=== PATIENT | male | born 1950 | race Caucasian/White ===

== ENCOUNTER → 2016-06-29 | Outpatient (CLI) | payer MEDICARE, OTHER ==
--- NOTE | 2016-06-30 02:44 | CT ---
Procedure: CT CHEST WITHOUT IV CONTRAST Exam Date: 06/29/2016 Ordering Provider: Jb Basilio Clinical Indication: I71.2 aortic aneurysm Comparison: 11/25/2015 TECHNIQUE: 5 mm images were taken through the chest without intravenous contrast material. Coronal and sagittal reformatted images were generated. This exam was performed according to our departmental dose optimization program which includes use of automated exposure control, adjustment of the mA and/or kV according to patient size and/or use of iterative reconstruction technique. FINDINGS: Lines/Tubes/Devices: None Lungs and large airways: Central airways are patent. No focal lung consolidation. Mild emphysematous change. Pleura: No pleural effusion. No pneumothorax. Mediastinum and salvador: No lymphadenopathy by size criteria. Heart and great vessels: Stable 4.6 cm ascending aortic aneurysm. Heart is not enlarged. No pericardial effusion. Aortic and coronary artery calcifications. Chest wall, lower neck, axillae: No axillary lymphadenopathy. Unremarkable thyroid. Upper abdomen: No acute abnormalities in the visualized upper abdomen. Bones: Nonacute IMPRESSION: 1.Stable 4.6 cm ascending aortic aneurysm. Electronically signed by: Benson Pena MD 06/30/2016 2:43 AM CDT
== END | disposition home or self-care (01) ==
LOC: CT 08:39
PROVIDERS: ATTEND Internal Medicine Cardiovascular Disease
DX: I71.2 Thoracic aortic aneurysm, without rupture (principal)

== ENCOUNTER → 2018-06-13 | Outpatient (CLI) | payer MEDICARE, OTHER | LOC: LAB.O 08:19 | PROVIDERS: ATTEND Nurse Practitioner Family | DX: I10 Essential (primary) hypertension (principal); Z12.5 Encounter for screening for malignant neoplasm of prostate | CPT/HCPCS: 36415; 80053; 80061; 84443; 85025; G0103 ==

== ENCOUNTER → 2019-09-08 | Outpatient (CLI) | payer MEDICARE, OTHER ==
--- NOTE | 2019-09-08 12:49 | US ---
EXAM DESCRIPTION: Aorta: Ultrasound. CLINICAL HISTORY: ABDOMINAL AORTA ANEURYSM COMPARISON: CT scan of the chest without contrast June 2016. TECHNIQUE: Transcutaneous scanning: Two-dimensional and Doppler modes. FINDINGS: Abdominal aorta diameter - Proximal: 2.7 x 2.1 cm. Mid: 2.6 x 2.1 cm. Distal: 2.1 x 2.0 cm. Common Iliac diameter - Right: 14 mm. Left: 14 mm. Other: Atherosclerotic changes. IMPRESSION: 2.7 cm proximal abdominal aortic aneurysm. Borderline aneurysms bilateral proximal common iliac arteries. [facility] Best Practice guidelines: 2.7 cm abdominal aortic aneurysm suspected. Stable since prior chest CT scan June 2016. Recommend follow-up every 5 years. Reference: J Am Cydney Radiol 2013;10:789-794. Electronically signed by: Jamari Arredondo MD 09/08/2019 12:47 PM CDT
== END ==
LOC: US 09:00
PROVIDERS: ATTEND Internal Medicine Cardiovascular Disease
DX: I71.4 Abdominal aortic aneurysm, without rupture (principal); I77.89 Other specified disorders of arteries and arterioles

== ENCOUNTER 2019-11-23 16:46 | Emergency (ER) | payer MEDICARE, OTHER ==
[2019-11-23] MEDS ORDERED: SODIUM CHLORIDE 0.9% (FLUSH) 10 ML SYG IV PRN (16:51)
--- NOTE | 2019-11-23 16:52 | ED.PDOC ---
History of Present Illness - General Time Seen by Provider: 11/23/19 16:51 Source: patient - History of Present Illness Initial Comments: 69-year-old male with past medical history of hypertension, GERD, COPD who presents with chief complaint of chest pain. Onset suddenly about 20 minutes prior to arrival while sitting at home at rest, located to center of chest wall, felt like a sharp severe muscular chest pain with slow radiation into the epigastric region over the next 5-10 minutes, he took 3 baby aspirin and the pain resolved after approx 5-10 mins altogether. He reports he last ate some peanut butter fold-ups about 1 hour prior to the event. He reported some mild dyspnea with the episode due to the pain. He does report chronic symptoms of mild dyspnea and intermittent cough from his COPD and smoking. He does report history of GERD and admits to drinking about 3 shots of rum per day every day. He also smokes daily. Denies any history of VT or coronary stents. Denies fevers, chills, n/v/d, leg swelling, urinary sx's. His PCP is Ronald Griffiths and his casting sorter is Dr. Ly. Allergies/Adverse Reactions: Allergies NO KNOWN ALLERGY Allergy (Unverified 11/23/19 17:13) Home Medications: Ambulatory Orders Aspirin [Aspirin Adult Low Dose] 81 mg PO DAILY 12/22/15 Carvedilol [Coreg] 3.125 mg PO BEDTIME 12/22/15 Cetirizine HCl [ZyrTEC] 10 mg PO DAILY 12/22/15 Esomeprazole Magnesium [Nexium] 40 mg PO DAILY 12/22/15 Lisinopril 10 mg PO DAILY 12/22/15 Round Top-3 Fatty Acids [Round Top 3] 1 cap PO DAILY 12/22/15 Tiotropium [place] Monohydrate [Spiriva Handihaler] 1 puff IN DAILY 12/22/15 Varenicline Tartrate [Chantix] 1 mg PO DAILY 12/22/15 Review of Systems - Review of Systems Review of Systems: 11/23/19 17:31 as per HPI All other Systems: Reviewed and Negative Past Medical History (General) - Patient Medical History Hx Congestive Heart Failure: No Hx Diabetes: No Hx MRSA: No Family Medical History - Family History Mother Family History: Unknown Physical Exam - Physical Exam General Appearance: Alert, Comfortable, No apparent distress Eye Exam: bilateral normal Ears, Nose, Throat: hearing grossly normal, normal ENT inspection, normal pharynx Neck: non-tender, full range of motion, supple, normal inspection Respiratory: lungs clear, normal breath sounds, no respiratory distress, no accessory muscle use Cardiovascular/Chest: normal peripheral pulses, regular rate, rhythm, no edema, no gallop, no JVD, no murmur, other - Mild ttp to chest wall, "feels sore" Peripheral Pulses: radial,right: 2+, radial,left: 2+ Gastrointestinal/Abdominal: normal bowel sounds, non tender, soft, no organomegaly Back Exam: normal inspection, no CVA tenderness, no vertebral tenderness Extremity: normal range of motion, non-tender, normal inspection, no pedal edema, no calf tenderness, normal capillary refill Neurologic: counseling program leader II-XII nml as tested, no motor/sensory deficits, alert, normal mood/affect, oriented x 3 Skin Exam: normal color, warm/dry Progress - Progress Progress: 11/23/19 17:33 Chest pain -Seems atypical in nature. Consider esophageal spasm, GERD, musculoskeletal most likely. Consider also ACS, unstable angina, pneumonia, CHF, gastritis, gastric ulcer, PE, acute pancreatitis, other -Patient stable upon ED arrival. Now reports pain as 0/10 severity, feeling back to his usual self -Obtain cardiac work-up, blood work -As patient has already taken 3 baby aspirin, will give 1 more for a total of 324 mg p.o. today as precautionary measure 11/23/19 20:24 -Trop 0.02 x2 in the ED and repeat EKG unchanged. CP has not returned. Work-up otherwise in the ED is unremarkable. -Pt strongly advised to be admitted for further CP observation given his age and risk factors but he declines and would rather go home. -Dc home in good condition, return warnings discussed. F/u closely with PCP for outpatient work-up. Advised to quit smoking & drinking. Richard Joseph MD Billing #[id number] 11/23/19 17:00 EKG STAT 11/23/19 18:45 EKG STAT Laboratory Results - last 24 hr 11/23/19 11/23/19 11/23/19 17:00 17:00 17:00 WBC 7.5 RBC 5.34 Hgb 17.0 Hct 48.2 MCV 90.2 MCH 31.7 H MCHC 35.2 RDW 13.7 Plt Count 169 MPV 7.9 Absolute Neuts (auto) 4.60 Absolute Lymphs (auto) 1.90 Absolute Monos (auto) 0.60 Absolute Eos (auto) 0.30 Absolute Basos (auto) 0.10 Neutrophils % 62.2 Lymphocytes % 25.8 Monocytes % 7.4 Eosinophils % 3.5 Basophils % 1.1 D-Dimer, Quantitative < 131.0 L Sodium 136 Potassium 3.8 Chloride 99 L Carbon Dioxide 27 Anion Gap 13.8 BUN 13 Creatinine 1.15 BUN/Creatinine Ratio 11.3 Random Glucose 132 H Serum Osmolality 273.9 L Calcium 8.8 Total Bilirubin 0.5 AST 27 ALT 24 Alkaline Phosphatase 78 Troponin I B-Natriuretic Peptide 25.0 Serum Total Protein 7.0 Albumin 4.0 Globulin 3.0 Albumin/Globulin Ratio 1.3 Lipase 11/23/19 11/23/19 11/23/19 17:00 17:00 18:42 WBC RBC Hgb Hct MCV MCH MCHC RDW Plt Count MPV Absolute Neuts (auto) Absolute Lymphs (auto) Absolute Monos (auto) Absolute Eos (auto) Absolute Basos (auto) Neutrophils % Lymphocytes % Monocytes % Eosinophils % Basophils % D-Dimer, Quantitative Sodium Potassium Chloride Carbon Dioxide Anion Gap BUN Creatinine BUN/Creatinine Ratio Random Glucose Serum Osmolality Calcium Total Bilirubin AST ALT Alkaline Phosphatase Troponin I 0.02 0.02 B-Natriuretic Peptide Serum Total Protein Albumin Globulin Albumin/Globulin Ratio Lipase 28 - EKG/XRAY/CT EKG: Sinus - Normal sinus rhythm, heart rate 80, no ST elevations or Q waves noted, axis normal, intervals normal, no prior EKG for comparison. XRAY: chest - no acute processes per my read Departure - Departure Clinical Impression: Chest pain Qualifiers: Chest pain type: unspecified Qualified Code(s): R07.9 - Chest pain, unspecified Gastroesophageal reflux disease Qualifiers: Esophagitis presence: esophagitis presence not specified Qualified Code(s): K21.9 - Gastro-esophageal reflux disease without esophagitis Time of Disposition: 20:22 Disposition: Discharge to Home or Self Care Condition: Good Departure Forms: ED Discharge - Pt. Copy, Patient Portal Self Enrollment Instructions: Acid Reflux and GERD in Adults (DC), Chest Pain (DC) Diet: other - GERD diet, heart healthy diet Activity: increase activity as tolerated Referrals: JOHNATHAN GRIFFITHS IV, [facility] [Primary Care Provider] - 1-2 Weeks Home Medications: Ambulatory Orders Aspirin [Aspirin Adult Low Dose] 81 mg PO DAILY 12/22/15 Carvedilol [Coreg] 3.125 mg PO BEDTIME 12/22/15 Cetirizine HCl [ZyrTEC] 10 mg PO DAILY 12/22/15 Esomeprazole Magnesium [Nexium] 40 mg PO DAILY 12/22/15 Lisinopril 10 mg PO DAILY 12/22/15 Round Top-3 Fatty Acids [Round Top 3] 1 cap PO DAILY 12/22/15 Tiotropium [place] Monohydrate [Spiriva Handihaler] 1 puff IN DAILY 12/22/15 Varenicline Tartrate [Chantix] 1 mg PO DAILY 12/22/15 Additional Instructions: As discussed I strongly advised that you quit smoking and drinking. I advised that you follow-up closely with your primary care physician for repeat evaluation of your chest pain in the outpatient setting. He would benefit from outpatient cardiac stress testing which will need to be ordered by your PCP. Return to the ED if you develop any new or concerning symptoms such as change or worsening of chest pain, shortness of breath, productive cough with fevers, etc. Continue to take your usual medications as well as your medications to prevent acid reflux.
[2019-11-23] MEDS ORDERED: NITROGLYCERIN 0.4 MG 25 EA TAB SL ONE (17:08)
[2019-11-23] MEDS ORDERED: ASPIRIN (CHEWABLE) 81 MG TAB PO ONE ×2 (17:08→17:26)
--- NOTE | 2019-11-23 17:36 | RAD ---
EXAM: XR Chest, 1 View CLINICAL HISTORY: The patient is 69 years old and is Male; chest pain TECHNIQUE: Single view of the chest. COMPARISON: December 22, 2015. FINDINGS: Lungs: Unremarkable. No consolidation. Pleural space: Unremarkable. No pneumothorax. Heart: Unremarkable. No cardiomegaly. Mediastinum: Unremarkable. Bones/joints: Degenerative changes in the right AC joint. No acute fracture visualized. Upper abdomen: No free air in the visualized upper abdomen. IMPRESSION: No acute cardiopulmonary process identified. Electronically signed by: Crystal Del Rio MD 11/23/2019 5:34 PM CDT
[2019-11-23 18:14] VITALS: TEMP 98.2
[2019-11-23 20:05] VITALS: BP 169/88; O2SAT 97
== END 2019-11-23 20:35 | disposition home or self-care (01) ==
LOC: ER 16:46
DX: R07.89 Other chest pain (principal); K21.9 Gastro-esophageal reflux disease without esophagitis; J44.9 Chronic obstructive pulmonary disease, unspecified; I10 Essential (primary) hypertension; F17.200 Nicotine dependence, unspecified, uncomplicated; Z79.82 Long term (current) use of aspirin; Z79.899 Other long term (current) drug therapy